=== PATIENT | male | born 1995 | race Hispanic/Latino ===

== ENCOUNTER 2023-10-30 22:26 | Emergency (ER) | payer OTHER ==
[~2023-10-30] VITALS: Ht 157.5 cm; Wt 68.9 kg
[2023-10-30 22:41] VITALS: BP 102/69; PULSE 83; RESP 16; O2SAT 100
[2023-10-31] MEDS ORDERED: KETO10TA2 PO (00:34)
== END 2023-10-31 00:54 | disposition home or self-care (01) ==
LOC: EDH 22:26
DX: S80.02XA Contusion of left knee, initial encounter (principal); S90.02XA Contusion of left ankle, initial encounter; X58.XXXA Exposure to other specified factors, initial encounter; Y93.89 Activity, other specified; Y92.89 Other specified places as the place of occurrence of the external cause; Y99.8 Other external cause status
CPT/HCPCS: 73562; 73610